=== PATIENT | male | born 1990 | race Hispanic/Latino ===

== ENCOUNTER → 2019-07-23 | Outpatient (CLI) | payer OTHER ==
--- NOTE | 2019-07-23 16:35 | Diagnostic Imaging Report ---
EXAMINATION: HAND 3+ VIEWS RIGHT INDICATION: Hand pain COMPARISON: None FINDINGS: No acute fracture or dislocation. Alignment is anatomic. Soft tissues appear unremarkable. No substantial degenerative change. IMPRESSION: No acute osseous injury. Signed by: Power Loza MD on 07/23/2019 4:31 PM
== END ==
LOC: RAD 15:38
DX: M79.641 Pain in right hand (principal)